=== PATIENT | male | born 1935 | race American Indian/Alaskan Native ===

== ENCOUNTER 2020-05-27 10:59 | Inpatient (IN) | payer MEDICARE, OTHER ==
[~2020-05-27] VITALS: Ht 165.1 cm; Wt 81.2 kg
[2020-05-27] MEDS ORDERED: LASIX20 MG PO (13:20)
[2020-05-27] MEDS ORDERED: COMBIVENT RESPIM4 GM INH (13:20)
[2020-05-27] MEDS ORDERED: ELIQUIS2.5 MG PO (13:21)
[2020-05-27] MEDS ORDERED: LIPITOR20 MG PO (13:21)
[2020-05-27] MEDS ORDERED: GLUCOTROL XL2.5 MG PO (13:21)
[2020-05-27] MEDS ORDERED: METOPROLOL TART25 MG PO (13:22)
--- NOTE | 2020-05-27 20:50 | NUR ---
PT HAD ARRIVED AT 1900 VIA STRETCHER, GOT SETTLED IN HIS ROOM WITH DAY SHIFT RN. ADMISSION COMPLETED AT THIS TIME. PT IS ALERT/ORIENTED, DENIES PAIN, IS SLIGHTLY [place]. LUNGS DIM, CRACKLES NOTED IN LEFT UPPER LOBES, OXYGEN TITRATED TO 2L VIA NC. HR V-PACED, TACHY, SCHEDULED METOPROLOL GIVEN. BOWEL TONES ACTIVE, DENIES NAUSEA. SKIN APPEARS GROSSLY INTACT, NO EDEMA NOTED. IV SITE PATENT AND INTACT, REMDESIVIR INFUSION STARTED. URINAL EMPTIED. WATER AND ENSURE PROVIDED. CALL LIGHT AND BELONGINGS WITHIN REACH.
--- NOTE | 2020-05-27 21:10 | NUR ---
REMDESIVIR INFUSION COMPLETED, IV SALINE LOCKED.
--- NOTE | 2020-05-27 23:23 | NUR ---
PT SLEEPING ON LEFT SIDE AT THIS TIME. 2L O2 VIA NC REMAINS IN PLACE. HR:84, RR:22, SPO2:93%. WILL ALLOW FOR REST AND CONTINUE TO MONITOR.
--- NOTE | 2020-05-28 00:34 | NUR ---
PT ASLEEP ON RIGHT SIDE, NO APPARENT DISTRESS. RESPIRATIONS EVEN AND UNLABORED, REMAINS ON 2L NC. LUNGS SOUND CLEAR EXCEPT FOR SOME FINE CRACKLES IN RIGHT LUNG BASE. HR PACED, RATE IN 80'S. WILL ALLOW FOR REST AT THIS TIME AND CONTINUE TO MONITOR.
--- NOTE | 2020-05-28 02:40 | NUR ---
PT CONTINUES TO SLEEP, NO APPARENT DISTRESS. HR:87, R:26, SPO2:95% ON 2L.
--- NOTE | 2020-05-28 04:45 | NUR ---
ASSESSMENT COMPLETED. PT WOKE EASILY, REMAINS ORIENTED, DENIES PAIN. NO CRACKLES AUSCULTATED, LUNGS SOUND CLEAR/DIM, REMAINS ON 2L. HR REMAINS PACED, RATE IN 70'S. BOWEL TONES ACTIVE, DENIES NAUSEA. URINAL EMPTIED. BLOOD DRAWN FOR MORNING LABS. PT DENIES REQUESTS AT THIS TIME, CALL LIGHT WITHIN REACH.
--- NOTE | 2020-05-28 07:07 | NUR ---
PT REQUESTS TO GET UP TO CHAIR. STANDING WEIGHT OBTAINED AND TRANSFERRED TO CHAIR WITH SBA. CALL LIGHT AND BELONGINGS WITHIN REACH.
--- NOTE | 2020-05-28 07:41 | NUR ---
0714: VERBAL REPORT RECEIVED FROM VIDAL SHABAZZ. LAST BP WAS 101/68, SAT IS NOW 96% AND HE IS PACED AT 69 AT THIS TIME.
--- NOTE | 2020-05-28 08:47 | NUR ---
PT RESTING IN HIS CHAIR AND HE DENIES ANY PAIN OR SOB AT THIS TIME. SPB RUNNING A BIT ON THE LOW SIDE, WILL BE NOTIFIED. PT STATES HE DOES NOT WEAR HIS DENTURES AND HE ORDERS SOFT FOODS DUE TO THIS. PT IS ALSO VERY [place]. UNABLE TO LISTEN TO HEART AND LUNG SOUNDS DUE TO PAPR. KATHY DENIES ANY CP AND STATES HIS BREATHING FEELS BETTER SINCE HIS ADMIT, SAT IS IN THE 90'S ON 2L AT THIS TIME. WILL CONTINUE TO MONITOR, SEE ASSESSMENT.
--- NOTE | 2020-05-28 09:11 | NUR ---
DR BYRD NOTIFIED OF PT'S BLOOD PRESSURES AND THAT THE LOPRESSOR WAS HELD.
--- NOTE | 2020-05-28 10:29 | NUR ---
1000: Pt assisted to the BR where he showered and was able to wash himself. Pt denies any sob while showering with his o2 on, his rr did increase to about 26 with walking and he was slightly unsteady on his feet. Pt was also noted to be incont of urine before his shower. After showering a fresh attends was placed. Fresh bedding was placed and the pt was assisted to his bed as he states he would like to take a nap. Pt states he feels "much better" following his shower. Call fournier within reach.
--- NOTE | 2020-05-28 11:28 | NUR ---
Pt appears to be sleeping at this time. Sat is 97% on 2l.
[2020-05-28] MEDS ORDERED: CLOPIDOGREL75 MG PO (11:45)
--- NOTE | 2020-05-28 12:05 | NUR ---
Dr Maurer called and updated to the pt's vital signs and she confirmed that she wishes for the pt to receive his ordered lasix dose.
--- NOTE | 2020-05-28 12:38 | NUR ---
PT DENIES ANY PAIN OR SOB AT THIS TIME, SAT 97% ON 2L, RR IS 23. WILL CONTINUE TO MONITOR, SEE ASSESSMENT.
--- NOTE | 2020-05-28 14:05 | NUR ---
Pt appears to be sleeping at this time. Sat remains in the high 90's on 2l via nc.
--- NOTE | 2020-05-28 14:16 | NUR ---
Pt had 3 beats of VT. Pt status and vs unchanged.
--- NOTE | 2020-05-28 14:39 | NUR ---
Pt sleeping, RR 22 and sat 98%.
--- NOTE | 2020-05-28 15:37 | NUR ---
MD AWARE OF BP, SEE EMAR.
--- NOTE | 2020-05-28 15:38 | NUR ---
PT RESTING IN HIS BED AND HE CONTINUES TO DENY ANY CP OR SOB. RR IS NOW 22 AT REST WITH A SAT OF 99%, O2 DECREASED TO 1L AND SAT DECREASED TO 95%. BP REMAINS LOW AND A FLUID BOLUS WAS ORDERED AND STARTED, SEE EMAR. NO OTHER NOTED CHANGES, SEE ASSESSMENT.
--- NOTE | 2020-05-28 16:43 | NUR ---
A BAG WITH THE PT'S HOME MEDICATIONS WAS DROPPED OFF AT THE NURSING STATION BY SECURITY, WHICH I WAS UNAWARE WERE COMING. THE PT IS COVID POSITIVE SO THEY WERE PLACED IN ANOTHER BAG, THE COUNTER WAS CLEANED WHERE THEY WERE PLACED AND RX TOOK THE BAG OF MEDICATICATIONS TO THE PHARMACY. THE CRT WAS NOTIFIED OF THESE EVENTS.
--- NOTE | 2020-05-28 17:22 | NUR ---
SAT 96% ON 1L, O2 TURNED OFF. PT CONTINUES TO DENY ANY PROBLEMS, BUT HIS RR IS 23 AT REST. WILL CONTINUE TO MONITOR.
--- NOTE | 2020-05-28 17:38 | NUR ---
Pt eating dinner at this time. Sat on room air is 92% and he continues to deny any sob.
--- NOTE | 2020-05-28 18:17 | NUR ---
PT ASSISTED TO THE C WHICH HE WAS ABLE TO HAVE A LARGE SOFT BROWN BM. UPON THE TIME HE RETURNED TO BED HE WAS SOB BUT MAINTAINED HIS O2 SAT IN THE 90'S AND RR INCREASED 28 FOR ABOUT 90 SECONDS. FOLLOWING THIS HE STATES HIS "BREATHING STRAIGHTENED OUT" AND HE DECLINED A BREATHING TREATMENT. SAT IS 96 ON RA AND HIS RR IS 23 AT THIS TIME. WILL CONTINUE TO MONITOR.
--- NOTE | 2020-05-28 19:28 | NUR ---
DR BYRD CALLED AND NOTIFIED OF THE PT'S BP AND AN ORDER WAS RECEIVED TO CONTINUE THE ORDERED IV BOLUS. REPORT GIVEN TO THE ON COMING SHIFT.
--- NOTE | 2020-05-28 20:30 | NUR ---
PT IN BED AWAKE AND ALERT. PT IS CURRENTLY ON ROOM AIR AND HAS LABORED BREATHING, EXP WHEEZES HEARD ON R SIDE OF LUNGS. PT REPORTS NO DIFFICULTY BREATHING OR SHORTNESS OF BREATH WHEN ASKED. MEDICATIONS ADMINISTERED ORDERED (SEE MAR). INSULIN NOT GIVEN PER SLIDING SCALE. PT STATED HE HAD SOME LABORED BREATHING EARLIER BUT FEELS FINE AT THIS TIME. PT REPORTS NO FURTHER NEEDS AT THIS TIME, WILL CONTINUE PLAN OF CARE. CALL LIGHT IN REACH BED IN LOWEST POSITION.
--- NOTE | 2020-05-28 20:44 | EKG ---
[facility] [address] [facility] [place], [place] [address] Signed Suspect unspecified pacemaker failure Ventricular-paced rhythm with frequent premature ventricular complexes Abnormal ECG No previous ECGs available Confirmed by ERIC BYRD MD ([id number]) on 05/28/2020 8:44:28 PM Electronically Signed By: ERIC BYRD MD 05/28/20 2044 PATIENT NAME: GABRIELLAKATHY Electrocardiogram DATE OF : 37 PHYSICIAN: ERIC BYRD MD REPORT #: [id number] REPORT IS CONFIDENTIAL AND NOT TO BE RELEASED WITHOUT AUTHORIZATION
--- NOTE | 2020-05-28 22:10 | NUR ---
THIS RN IN TO ASSESS PT DUE TO IV PUMP GOING OFF. PT BREATHING LABORED BUT PT REPORTS NO SHORTNESS OF BREATH OR DIFFICULTY. UPON AUSCULTATION EXP WHEEZES HEARD ON RIGHT SIDE. PT ASKED IF HE WOULD LIKE TO TRY BREATHING TREATMENT AND AGREED TO. RT NOTIFIED THAT PT. WOULD LIKE A BREATHING TX. PT ON ROOM AIR AT THIS TIME SPO2 AT 92%. PT HELPED INTO SEMI FOWLERS. PT REPORTS NO FURTHER NEEDS WHEN ASKED. CALL LIGHT WITHIN REACH, BED IN LOWEST POSITION. WILL CONTINUE PLAN OF CARE.
--- NOTE | 2020-05-28 23:04 | NUR ---
RT IN GIVE NEB FOR WHEEZES. AFTERWARD SATS NOTED TO BE 86-88. 02 2L NC APPLIED.
--- NOTE | 2020-05-29 | NUR ---
THIS RN IN TO ASSESS PT. PT WAS ON BEDSIDE COMMODE AND HAD A BM. PT VOIDED ON FLOOR AND WAS THEREFORE UNMEAUSURED. PT'S BRIEFS WERE CHANGED HE HAD AN EPISODE OF INCONTINENCE. PT WAS ABLE TO STAND UP AND SHUFFLE WALK BACK TO BED. PT ALSO ABLE TO HELP PULL UP NEW PAIR OF BRIEFS. PT DENIES HAVING SOB OR DIFFICULTY BREATHING BUT STATES HIS "BREATHING FELT DEEPER AND HEAVIER" AFTER HIS BREATHING TREATMENT. PT REPORTS NO FURTHER NEEDS AT THIS TIME AND IS ON 2L O2 NC. IV FLUIDS INFUSING ORDERED. CALL LIGHT WITHIN REACH, BED IN LOWEST POSITION, WILL CONTINUE PLAN OF CARE.
--- NOTE | 2020-05-29 00:03 | NUR ---
DR BYRD GIVEN UPDATE THAT METOPROL WAS BEING HELD BP LOW.
--- NOTE | 2020-05-29 01:37 | NUR ---
THIS RN IN TO RESTART IV FLUIDS PUMP ALARM WAS GOING OFF. PT WAS SLEEPING AND WOKE TO ME ENTERING THE ROOM. IV FLUIDS STARTED AGAIN, PT REPORTS NO PAIN AND NO SHORTNESS OF BREATH. PT STATES HE HAS FELT A LITTLE SHORT OF BREATH THROUGHOUT THE NIGHT. PT CURRENTLY ON 2L NC, SPO2 AT 94%, RR AT 26. PT REPORTS NO FURTHER NEEDS AT THIS TIME AND WAS READJUSTED IN BED. PT NOW SEMIFOWLERS. PT STATES HE WILL GO BACK TO SLEEP. CALL LIGHT WITHIN REACH, BED IN LOWEST POSITION. WILL CONTINUE PLAN OF CARE.
--- NOTE | 2020-05-29 04:18 | NUR ---
THIS RN IN TO ASSESS PT. PT IV PUMP ALARMING AND IVF WERE RESTARTED AFTER FLUSHING LINE. PT REPORTS NO PAIN WHEN ASKED AND NO SHORTNESS OF BREATH. PT ON 2L O2 NC, SPO2 AT 93%. PT REPORTS NO FURTHER NEEDS AFTER ASSESSMENT. CALL LIGHT LEFT AT SIDE WITHIN REACH, BED IN LOWEST POSITION. PT. EDUCATED ON PLAN OF CARE AND REASON FOR BEING HERE. PT IS ALERT AND ORIENTED TO ALL BUT FORGETFUL OF CHF EXACERBATION THOUGH HE RECALLS THAT HE IS HERE FOR TESTING POSITIVE FOR "THE VIRUS". PT REPORTS NO FURTHER NEEDS, WILL CONTINUE PLAN OF CARE.
--- NOTE | 2020-05-29 06:52 | NUR ---
THIS RN IN TO ASSESS PT. IVF COMPLETE, PT SALINE LOCKED. UPON INSPECTION OF FLUSHING NS IV SITE BEGAN TO LEAK. IV DC'D DUE TO INFILTRATION. IV INTACT, PT TOLERATED REMOVAL WELL. LABS DRAWN AT THIS TIME WELL. PT REPORTS NO SOB OR PAIN AT THIS TIME. PT REPORTS NO FURTHER NEEDS AT THIS TIME. PT ON 2L O2 NC, SPO2 AT 95%, RR AT 23. WILL CONTINUE PLAN OF CARE, CALL LIGHT WITHIN REACH, BED IN LOWEST POSITION.
--- NOTE | 2020-05-29 08:40 | NUR ---
LAST BP 94/59 WHICH IS WITHIN THE RANGE OF WHERE THE PT HAS BEEN RUNNING. PT DENIES ANY NEW PROBLEMS TO INCLUDE NO SOB AT REST. I AM UNABLE TO LISTEN TO HIS LUNGS DUE TO THE PAPR, RR IS 20 NOW AT REST AND HIS SAT IS 93% ON 2L AT THIS TIME. NEW IV PLACED IN HIS LEFT WRIST AND IS INFUSING HIS ORDERED REMDESIVIR AT THIS TIME. SEE ASSESSMENT FOR A FULL UPDATE.
--- NOTE | 2020-05-29 09:48 | NUR ---
Dr Maurer notified that the lopressor was held and she is aware of the am lab results, no new orders at this time.
--- NOTE | 2020-05-29 10:42 | NUR ---
PT CONTINUES TO DENY ANY SOB WHILE AT REST OR ANY OTHER PROBLEMS AT THIS TIME. PT ATE 100% OF HIS BREAKFAST AND STATES THAT HE IS GOING TAKE A NAP AT THIS TIME.
--- NOTE | 2020-05-29 10:56 | NUR ---
1046: PT HAD 9 BEATS OF V-TACH AND RETURNED TO HIS PACED RHYTHM WITH FREQUENT PVC'S PRIOR. BP CHECKED AT 98/74 WITH A MAP OF 79 AND A SAT OF 94% ON 2L. PT DENIES ANY CP OR ANY OTHER CHANGE IS CONDITION. 1052: DR BYRD NOTIFIED AND SHE VIEW THE V-TACH. VO RECEIVED TO GIVEN THE HELD LOPRESSOR 25 MG PO NOW AND CONTINUE TO MONITOR RHYTHM AND BP.
--- NOTE | 2020-05-29 11:19 | NUR ---
PT APPEARS TO BE SLEEPING AT THIS TIME.
--- NOTE | 2020-05-29 12:20 | NUR ---
PT CONTINUES TO DENY ANY SOB WHILE AT REST AND WITH NO CHANGES IN HIS STATUS NOTED. PT REPOSITIONED AND IS USING HIS IS EDUCATED. SEE ASSESSMENT.
--- NOTE | 2020-05-29 13:28 | NUR ---
1322; PT HAD 15 BEATS OF V-TACH AND HE CONTINUES TO DENY ANY SYMPTOMS. BP 107/95 WITH A MAP OF 102, SAT 95% ON 4L AND HIS HR RETURNED TO HIS PACED RHYTHM PRIOR. DR BYRD WAS CALLED AND NOTIFIED AND THE STRIP WAS PLACED IN THE CHART.
--- NOTE | 2020-05-29 15:35 | NUR ---
PT CONTINUES RESTING IN HIS BED WITHOUT ANY COMPLAINTS. SEE ASSESSMENT.
--- NOTE | 2020-05-29 16:15 | NUR ---
Pt called and states that his iv K+ that is infusing is causing some pain. The site appears good without any swelling or redness, the rate was decreased and a warm blanket was placed to the arm. The pt was instructed to call if the pain increases or does not ease up in a few minutes.
--- NOTE | 2020-05-29 16:29 | NUR ---
Sulaiman states that the iv site feels much better since the iv rate was decreased.
--- NOTE | 2020-05-29 17:19 | NUR ---
Pt sitting up at the bedside eating his dinner. He states that he breathing is feeling better and he denies any sob. His left wrist iv site continues to appear healthy and he states the stinging is much better since the infusion rate has been decreased. Pt continues to deny any CP or any other new problems.
--- NOTE | 2020-05-29 17:33 | NUR ---
Pt layed back down following his eating his dinner at the bedside and now he has a some exp wheezes. RT called for a breathing treatment at this time.
--- NOTE | 2020-05-29 20:50 | NUR ---
PT CALLED AND STATED HIS BREATHING FEELS HEAVY. BREATH TONES CRACKLES BASES BILAT. RT CALLED AND NEB TX GIVEN. PT VIDHYA TX WELL AND FEELS LIKE IT HELPED. TAKING PO FLUIDS WELL, REQUESTING ENSURE. VOIDING WELL.
--- NOTE | 2020-05-29 23:08 | NUR ---
UP TO BSC TO HAVE SEMI SOFT BM AND TO VOID. SL SOB WITH EXERTION BUT OTHERWISE VIDHYA WELL.
--- NOTE | 2020-05-29 23:19 | NUR ---
PLACED O2 SAT MONITOR 90% ON 2 L. PRIMARY RN UPDATED.
--- NOTE | 2020-05-30 00:04 | NUR ---
SLEEPING AT THIS TIME.
--- NOTE | 2020-05-30 00:45 | NUR ---
PT WANTING TO SIT UP IN CHAIR. STATES HE JUST CAN'T LAY DOWN ANY MORE TO SLEEP. UP TO CHAIR. CRACKLES HAVE INCREASED. SATS REMAIN LOW 90'S.
--- NOTE | 2020-05-30 02:45 | NUR ---
BACK TO BED. NO CHANGE IN BREATH TONES.
--- NOTE | 2020-05-30 04:12 | NUR ---
RESPONDED TO PT CALL LIGHT. PT STATED THAT HE WAS FEELING UNCOMFORTABLE AND COULD NOT GO TO SLEEP. THIS RN WENT IN TO ASSESS PT AND WAS GIVEN PRN TYLENOL FOR HIS GENERAL DISCOMFORT. PT DENIES SHORTNESS OF BREATH AT THIS TIME BUT STATES HE HAS HAD OCCASIONAL SOB THROUGHT THE NIGHT. PT ON 2L O2, SPO2 AT 94%. PT REPORTS NO FURTHER NEEDS AT THIS TIME, WILL CONTINUE PLAN OF CARE. CALL LIGHT IN REACH, BED IN LOWEST POSITION.
--- NOTE | 2020-05-30 06:20 | NUR ---
THIS RN IN TO ASSESS PT AND DRAW LABS. WAS UNABLE TO DRAW LABS AT THIS TIME. PT REPORTS NO SHORTNESS OF BREATH AT THIS TIME AND NO PAIN. PT STATES THE TYLENOL GIVEN TO HIM HELPED HIS SLEEP FOR THE REST OF THE MORNING. PT PROVIDED WITH A SODA HE REQUESTED. WILL CONTINUE PLAN OF CARE. CALL LIGHT WITHIN REACH, BED IN LOWEST POSITION. PT ON 2L O2 NC, SPO2 AT 92%.
--- NOTE | 2020-05-30 08:20 | NUR ---
ECHO BEING DONE AT BEDSIDE.
--- NOTE | 2020-05-30 09:00 | NUR ---
ASSESSMENT DONE. PATIENT DENIES SHORTNESS OF BREATH. USING URINAL TO VOID. ECHO COMPLETE. REMDISEVER HUNG. PO MEDICATIONS GIVEN. BLOOD DRAWN 1.5 ML DRAWN FROM RIGHT FOOT. O2 AT [address] DENEIS PAIN[address] TALKED WITH PATIENT ABOUT POC FOR DAY FOR DAY INDICATES UNDESTANDING..
--- NOTE | 2020-05-30 10:00 | NUR ---
CONTINUES TO SIT EATING BREAKFAST.
--- NOTE | 2020-05-30 10:20 | NUR ---
RESTING NO CHANGES NOTED.
--- NOTE | 2020-05-30 11:30 | NUR ---
AM CARE GIVEN. TOLERATED WELL, THEN TRANSFERRED TO CHAIR. TOLERATED TRANSFER WELL
--- NOTE | 2020-05-30 12:00 | NUR ---
ASSESSMENT DONE. NO CHANGES. ACCUCHECK 287. 7 UNITS INSULIN SQ GIVEN.
--- NOTE | 2020-05-30 13:00 | NUR ---
SAT IN CHAIR TO TAKE LUNCH, TOLERATED WELL.
--- NOTE | 2020-05-30 13:30 | NUR ---
BACK TO BED WITH ASSIST. IS SOMEWHAT UNSTEADY ON FEET. INCREASED SHORTNESS OF BREATH WITH EXERTION.
--- NOTE | 2020-05-30 14:14 | NUR ---
DUE TO PRECAUTIONS, I AM UNABLE TO VISIT WITH PT. WILL FOLLOW NEEDED
--- NOTE | 2020-05-30 15:00 | NUR ---
RESTING WHEN CHECKED ON. NO DISTRESS NOTED.
--- NOTE | 2020-05-30 17:20 | NUR ---
ACCUCHECK 211, 3 UNITS INSULIN GIVEN.
--- NOTE | 2020-05-30 20:15 | NUR ---
SHIFT REPORT RECEIVED FROM HARIKA BURRIS. ASSESSMENT COMPLETED. PT ALERT/ORIENTED, DENIES PAIN. LUNGS CLEAR, DIM IN BASES, 2L O2 VIA NC IN PLACE. DENIES SOB AT REST. HR PACED. BOWEL TONES ACTIVE, DENIES NAUSEA. SKIN GROSSLY INTACT. IV INTACT AND PATENT. EVENING MEDICATIONS TAKEN WITHOUT ISSUE. URINAL EMPTIED. ICE WATER PROVIDED. DISCUSSED PLAN OF CARE, QUESTIONS ANSWERED. CALL LIGHT AND BELONGINGS WITHIN REACH.
--- NOTE | 2020-05-30 20:57 | NUR ---
PT CALLED TO REQUEST BREATHING TREATMENT. GIVEN AT THIS TIME.
--- NOTE | 2020-05-30 22:06 | NUR ---
PT APPEARS TO BE SLEEPING AT THIS TIME, NO APPARENT DISTRESS. RESPIRATIONS EVEN AND UNLABORED, 2L O2 VIA NC IN PLACE. HR:60, RR:20, SPO2:95%.
--- NOTE | 2020-05-30 22:21 | NUR ---
PT CALLED TO REQUEST TO MOVE TO CHAIR. TRANSFERRED WITH SBA TO CHAIR. NO FURTHER REQUESTS AT THIS TIME, CALL LIGHT AND BELONGINGS WITHIN REACH.
--- NOTE | 2020-05-31 00:41 | NUR ---
ASSESSMENT COMPLETED. PT STATES HE HAS BEEN ABLE TO SLEEP, REMAINS SITTING UP IN CHAIR AND HAS TILTED HIMSELF ONTO RIGHT SIDE. DENIES PAIN. LUNGS CLEAR/DIM, REMAINS ON 2L, NEB GIVEN PER REQUEST. HR PACED. BOWEL TONES ACTIVE, DENIES NAUSEA. NO EDEMA PRESENT. IV REMAINS INTACT, SALINE LOCKED. URINAL EMPTIED AND ICE WATER PROVIDED. NO FURTHER REQUESTS AT THIS TIME, CALL LIGHT WITHIN REACH.
--- NOTE | 2020-05-31 02:30 | NUR ---
PT REMAINS UP IN CHAIR, APPEARS TO BE ASLEEP. NO APPARENT DISTRESS, 2L O2 REMAINS IN PLACE. HR:73, RR:24, SPO2:95%.
--- NOTE | 2020-05-31 02:49 | NUR ---
PT CALLED FOR ASSISTANCE GETTING BACK TO BED. TRANSFERRED WITH SBA. URINAL EMPTIED. NO FURTHER REQUESTS AT THIS TIME, CALL LIGHT WITHIN REACH.
--- NOTE | 2020-05-31 05:10 | NUR ---
ASSESSMENT COMPLETED, UNCHANGED FROM PREVIOUS. CONTINUES TO DENY SOB AT REST. BLOOD DRAWN FOR MORNING LABS, PT TOLERATED WELL. URINAL EMPTIED. NO REQUESTS AT THIS TIME, CALL LIGHT WITHIN REACH.
--- NOTE | 2020-05-31 06:18 | NUR ---
URINAL EMPTIED. PT APPEARS TO BE ASLEEP, NO APPARENT DISTRESS. RR:19, HR:61, SPO2:94% ON 2L. CALL LIGHT WITHIN REACH.
--- NOTE | 2020-05-31 06:47 | NUR ---
PT CALLED TO REQUEST FRESH ICE WATER AND AN ENSURE, PROVIDED AND ACCOUNTED FOR AT THIS TIME.
--- NOTE | 2020-05-31 07:30 | NUR ---
REPORT RECIEVED. PATIENT IS SLEEPING. NO DISTRESS NOTED.
--- NOTE | 2020-05-31 09:00 | NUR ---
WOKE FOR ASSESSMENT AND MEDICATION. UP TO CHAIR FOR BREAKFAST INCREASED SHORTNESS OF BREATH WITH EXERTION.
--- NOTE | 2020-05-31 09:30 | NUR ---
TO COMMODE TO EXPELL MED SOFT FORMED BROWN STOOL. AM CARES GIVEN WHILE ON COMMODE. THEN BACK TO BED. REMEISEVER GIVEN.
--- NOTE | 2020-05-31 10:47 | NUR ---
RESTING IN BED. DENEIS PROBLEMS. O2 IN PLACE.
--- NOTE | 2020-05-31 12:30 | NUR ---
SLEEPING, NO DISTRESS NOTED.
--- NOTE | 2020-05-31 13:20 | NUR ---
REFUSED FOOD, ENSURE GIVEN. ACCUCHECK 301. 7 UNITS INSULIN GIVEN. TRANSFERRED TO CHAIR.
--- NOTE | 2020-05-31 14:48 | NUR ---
CONTINUES TO SIT IN CHAIR. HAD RUN OF VTACH 29 BEATS, PATIENT FELT FLUSHED.
--- NOTE | 2020-05-31 14:48 | NUR ---
STILL UNABLE TO VISIT PT DUE TO PRECAUTIONS. WILL CONTINUE TO FOLLOW
--- NOTE | 2020-05-31 15:00 | NUR ---
IS HOUSE CONVENIENCE IN ROOM 126 OF NOON TODAY. REMAINS IN CHAIR.
--- NOTE | 2020-05-31 15:10 | NUR ---
CANNOT SEE PATIENT IN ROOM DUE TO COVID GUIDELINE. STAFF THINKS PATIENT WOULD HAVE A HARD TIME TALKING ON THE PHONE. CALLED DAUGHTER HITESH [phone] AND VOICEMAIL LEFT FOR CALLBACK.
--- NOTE | 2020-05-31 15:45 | NUR ---
TELE # 6 APPLIED APPLIED. ASSESSMENT DONE. BACK TO BED AFTER SITTING IN CHAIR THE LAST 3 HOURS. HAS BEEN MORE TIRED TODAY WITH LESS ENERGY.
--- NOTE | 2020-05-31 15:55 | NUR ---
ASSESSMENT DONE. MORE SHORT OF BREATH WITH EXERTION THIS AFTERNOON. ON TELE #6.
--- NOTE | 2020-05-31 15:59 | NUR ---
RECEIVED CALL BACK FROM DAUGHTER HITESH. PATIENT LIVES IN [place] IN OWN HOME WITH HIS HOUSE FATHER WHO IS HIS NEPHEW. 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 DAUGHTER SPOKE WITH THEM, IF HE NEEDS RX HERE HE CAN USE [facility] AND THEY WILL PAY. PATIENT USES A WALKING STICK FOR AMBULATION. HAD JUST GOT A NEW NEBULIZER BUT THEY FORGET TO BRING IT. SHE STATES HIS NEPHEW RECENTLY TESTED COVID POSITIVE, PATIENT WAS NEGATIVE SO SHE BROUGHT PATIENT HERE WHILE NEPHEW QUARANTINED. HOWEVER, PATIENT THEN BECAME ILL AND WAS COVID POSITIVE. NOW HER FAMILY HAS TESTED POSITIVE. PATIENT HAS A COUPLE STEPS IN WITH RAIL AT HOME, NO STAIRS NEEDED HERE WITH HER. PATIENT FEEDS SELF, DRESSES SELF AND TOILETS SELF. HE DOES NOT TAKE SHOWERS ON OWN SINCE A FALL BUT WILL WITH ASSIST. SHE STATES HE IS OK FOR COST OF MEDS/FOOD AND UTILITIES. PLAN IS TO STAY WITH HER AT DISCHARGE UNTIL QUARANTINES OF ALL IS THROUGH. SHE STATES HE WILL HAVE HELP ATC HERE. QUESTIONS ANSWERED. CM WILL CONTINUE TO FOLLOW.
--- NOTE | 2020-05-31 19:20 | NUR ---
REPORT TO NEXT SHIFT.
--- NOTE | 2020-05-31 20:04 | NUR ---
SHIFT REPORT RECEIVED FROM HARIKA BURRIS. PT CALLED TO REQUEST BREATHING TREATMENT. ASSESSMENT COMPLETED AT THIS TIME. PT REPORTS SOB, RESPIRATIONS ARE TACHYPNIC. LUNGS SOUND COARSE IN UPPER RIGHT WITH EXPIRATORY WHEEZES NOTED IN RIGHT LOWER. LEFT SIDE SOUNDS CLEAR/DIM, 2L O2 VIA NC IN PLACE, NEB GIVEN. HR PACED. BOWEL TONES ACTIVE, DENIES NAUSEA. SKIN GROSSLY INTACT, NO EDEMA NOTED. IV INTACT, PATENT, SALINE LOCKED. URINAL EMPTIED. PT DENIES ANY PAIN OR FURTHER REQUESTS AT THIS TIME. CALL LIGHT WITHIN REACH.
--- NOTE | 2020-05-31 21:53 | NUR ---
PT CALLED TO REPORT THAT HE FELT LIKE HE COULDN'T COUGH UP SPUTUM. DR. BYRD CALLED AND ORDER FOR ONE TIME MUCINEX DOSE RECEIVED. PT ALSO PROVIDED WITH AND INSTURCTED TO USE ACAPELLA, WHICH PT WAS ABLE TO DEMONSTRATED. PT UP TO CHAIR AT THIS TIME WITH SBA. REMAINS AT 2L OXYGEN, SPO2:92%. CALL LIGHT WITHIN REACH, PT DENIES FURTHER REQUESTS.
--- NOTE | 2020-05-31 23:03 | NUR ---
PT CALLED, HE WAS READY TO GO BACK TO BED AND ALSO NEEDED TO HAVE BM. UP TO BSC, HAD SMALL BM, THEN RETURNED TO BED. URINAL EMPTIED AND WATER PROVIDED. NO FURTHER REQUESTS, CALL LIGHT WITHIN REACH.
--- NOTE | 2020-06-01 00:15 | NUR ---
ASSESSMENT COMPLETED. PT DENIES PAIN. LUNGS CLEAR/DIM, REMAINS ON 2L O2 VIA NC, DENIES SOB AT REST. REMAINDER OF ASSESSMENT UNCHANGED. PT PROVIDED WITH ENSURE PER REQUEST. VITAL SIGNS STABLE, AFEBRILE. NO FURTHER REQUESTS AT THIS TIME, CALL LIGHT WITHIN REACH.
--- NOTE | 2020-06-01 02:16 | NUR ---
PT POSITIONED ON RIGHT SIDE, APPEARS TO BE ASLEEP AT THIS TIME, NO APPARENT DISTRESS. RESPIRATIONS EVEN AND UNLABORED. HR:86, SPO2:93% ON 2L.
--- NOTE | 2020-06-01 04:45 | NUR ---
ASSESSMENT COMPLETED. PT REPORTS FEELING SOMEWHAT RESTLESS AND UNCOMFORTABLE, PRN TYLENOL ADMINISTERED FOR COMFORT. LUNGS REMAIN CLEAR/DIM, 2L O2 VIA NC IN PLACE. HR REMAINS PACED, TELE#6. NO OTHER CHANGES FROM PREVIOUS ASSESSMENT. DENIES FURTHER REQUESTS, CALL LIGHT WITHIN REACH.
--- NOTE | 2020-06-01 09:10 | NUR ---
REPORT RECEIVED FROM NIGHT RN AND PATIENT CARE RESUMED. TEMP. IS 97.9. PT. AMBULATED INDEPENDENTLY TO THE CHAIR AND TOLERATED WELL. ON 2L OF 02 NC AND O2 SAT. 93%. IV SITE WNL. PT. VOIDED 350ML CLEAR YELLOW URINE. BLOOD GLUCOSE WAS 204 AND 3UNITS OF HUMALOG GIVEN. PT. LEFT RESTING IN THE CHAIR WITH CALL LIGHT IN REACH.
--- NOTE | 2020-06-01 10:03 | NUR ---
PATIENT BEDDING CHANGED. PT. AMBULATED INDEPENDENTLY FROM THE CHAIR TO THE BED AND TOLERATED WELL. PT. STATED HIS DAUGHTER HAS HIS PACER CARD IN HIS WALLET. HIS DAUGHTER WAS CALLED AND STATED THE PACER MODEL IS [employer] [id number].
--- NOTE | 2020-06-01 10:21 | NUR ---
ESHA RN IN ER CONTACTED [employer] REP, LEE. THE PACER INTEROGATORS WE HAVE ARE NOT COMPATIBLE WITH THE [employer]RONIC PACER. REP. STATED THAT THE BIOTRONIC REP. IN [place] WOULD HAVE TO INTEROGATE IT AND RESET. THE NUMBER GIVEN IS [phone].
--- NOTE | 2020-06-01 11:40 | NUR ---
PATIENT IV DC'D DUE TO LEAKING. PT. ORDERED LUNCH AND ASSISTED WITH REPOSITIONING. PT LEFT RESTING IN BED WITH CALL LIGHT IN REACH.
--- NOTE | 2020-06-01 12:05 | NUR ---
IV STARTED. 22G IN LEFT UPPER ARM. FLUSHED WELL AND TONNY BACK BLOOD. HEMATOMA PRESENT AND PRESSURE APPLIED WITH GUAZE AND COBAND. PT. TOLERATED WELL. BLOOD RETURN AND FLUSHED WELL.
--- NOTE | 2020-06-01 13:00 | NUR ---
PATIENT AMBULATED TO THE BEDSIDE COMMODE AND VOIDED 400 AND HAD A LARGE FORMED BM. PT. 02 SAT. DECREASED TO 87% WITH EXERTION. PT. STATED HE COULD NOT BREATH THROUGH HIS NOSE WELL, SO OXYMASK USED AND TITRATED TO 3L 02. 02 SAT RETURNED TO 92%. PT. IV SITE WNL AND FLUSHED WELL. FINE CRACKLES PRESENT IN LOWER LOBES OF LUNGS BILAT. AND WHEEZES IN THE RUL. PT. ASSISTED WITH REPOSITIONING. PT. REQUESTED NEB. TX AND O2 CALLED.
--- NOTE | 2020-06-01 14:09 | NUR ---
UNABLE TO VISIT PT DUE TO COVID-19 POSITIVE. WILL FOLLOW NEEDED
--- NOTE | 2020-06-01 15:26 | NUR ---
No change in discharge plan.
--- NOTE | 2020-06-01 17:56 | NUR ---
BLOOD GLUCOSE WAS 273 AND GIVEN 5 UNITS OF HUMALOG. PT. AMBULATED WITH ASSISTANCE TO CHAIR. PT. STATED THAT HE HAS NOT SLEPT IN 2 DAYS BECAUSE OF HIS COUGH. DR. WEST NOTIFIED AND ORDERED ROBITUSSIN. PT. USED ACAPELLA. PT. LEFT RESTING IN BED WITH CALL LIGHT IN REACH.
--- NOTE | 2020-06-01 18:12 | NUR ---
PATIENT GIVEN ROBITUSSEN FOR COUGH. VOIDED 275ML IN URINAL. PT. LEFT RESTING IN CHAIR WITH CALL LIGHT IN REACH.
--- NOTE | 2020-06-01 18:55 | NUR ---
report received . pt to go to room 117
--- NOTE | 2020-06-01 19:46 | NUR ---
pt transferred to room 117 at 1940
--- NOTE | 2020-06-01 20:00 | NUR ---
PT ON 2LNC O2. LUNGS DIM AT BASES, MOIST NON PROD COUGH PRESENT. ON AIRBORNE PRECAUTIONS PER COVID+ DX. SL L ARM PATENT. CHEVAK. CALL LIGHT AND FLUIDS AT BEDSIDE. COOPERATIVE. USES CALL LIGHT APPROPRIATELY
--- NOTE | 2020-06-01 22:00 | NUR ---
PT C/O INSOMNIA, DR WEST NOTIFIED VIA PHONE, NEW ORDERS FOR MELATONING 1MG PRN OBTAINED.
--- NOTE | 2020-06-01 22:10 | NUR ---
MELATONIN 1MG PO GIVEN PER INSOMIA ON REQUESTS. USED URINAL, VOIDING QS YELLOW URINE, REPOSIONS SELF IN BED, O2 2lnc, TELE CPOX INPLACE. 92-93%.
--- NOTE | 2020-06-01 22:45 | NUR ---
SMALL AMOUNT OF YELLOW URINE EMPTIED, USES URINAL, DENIES SOB WITH EXERTION AT THIS TIME, BACKA TO BED W/O ASSIST
--- NOTE | 2020-06-01 23:11 | NUR ---
URINAL EMPTIED, ROOM MADE WARMER PER HIS REQUESTS, REPOSITONS SELF, MOIST NON PROD COUGH PRESENT, O2 2L NC. VOIDING QS. 'BETTE WIDE AWAKE, I DO NOT KNOW WHATS HAPPENING, I CANT SLEEP, MED IS NOT EFFECTIVE. " CONT ON ISOLATION ROOM
--- NOTE | 2020-06-01 23:55 | NUR ---
c/o generalized axches, medicated with 2 tylenol.
--- NOTE | 2020-06-02 01:22 | NUR ---
RESTING, EYES CLOSED, NO DISTRESS, TELE CPOX 95%, CALL LIGHT AT BEDSIDE
--- NOTE | 2020-06-02 01:56 | NUR ---
CONTINUES ON AIRBORNE ISOLATION PRECAUTIONS, O2 2LNC, TELE CPOX 92%, NO DISTRESS, EYES CLOSED. CALL LIGHT AND FLUIDS AT BEDSIDE
--- NOTE | 2020-06-02 03:19 | NUR ---
PT CALLED TO LET THIS NURSE KNOW THAT HE HAD SLEP FOR OVER 1.5HRS. SITTING EDGE OF BED. ON 2LNC, TELE CPOX AT 91%, SLIGHT SOB NOTED WHEN UP TO URINATE AND BACK TO BED. USES CALL LIGHT, COOP WTIH SECOND ASSESSMENT. CONTINUES ON AIRBORNE PRECAUTIONS ISOLATION
--- NOTE | 2020-06-02 06:30 | NUR ---
medicated with Tylenol per c/o generalized pain. Coop with blood draw. Up edge of bed, no sob noted at this time, voiding small amounts urine. uses call light, O2 2LNC,
--- NOTE | 2020-06-02 06:40 | NUR ---
Pt in airborne isolation, +covid. on 2LNC O2 at this time, tele cpox in place, sats 89-95%, noted to be sob on exertion when getting up to edge of bed and using the urinal X2, other times was fine. no n/v, Was medicated with Tylenol per generalized pain, effective. CBG 271, received ss insulin. uses urinal, voiding small amounts QS yellow urine. On fluid restrictions of 1600cc/24 tolerating well, no n/v. sl patent, SBA when walking, slight unsteady gait. cooperatve, uses call light
--- NOTE | 2020-06-02 07:44 | NUR ---
0715: Report received from Stephanie SHABAZZ. Tele reads paced at 74 with a sat of 94%.
--- NOTE | 2020-06-02 08:30 | NUR ---
Per 8:[address] Betts, pt will dc today. 02 qualifier ordered as pt remains on 022l. Called and spoke with daughter for dc plan. Pt will go home with her for a few days and then return to [facility] for Cardiology appt on the . Obtained her address to have 02 delivered. I will use [facility] [place] as they are nationwide.
--- NOTE | 2020-06-02 09:10 | NUR ---
[address] Betts. Pt is in requirement of 10L with activity. He will not dc today. Daughter called and updated.
--- NOTE | 2020-06-02 09:23 | NUR ---
PT DENIES ANY PAIN AT THIS TIME, HE IS HAVING SOME SOB WHILE WORKING WITH PHYSICAL THERAPY AND RT AT THIS TIME. HE REMAINS ON CPOX AT THIS TIME, SEE RT'S NOTES. SEE ASSESSMENT.
--- NOTE | 2020-06-02 10:01 | NUR ---
Pt called and complains of sob following his work with physical therapy. Sat is 92% on 2l and his RR is 26. Unable to listen to lungs due to PPE. RT was called and a breathing treatment was requested.
--- NOTE | 2020-06-02 10:11 | NUR ---
Pt receiving a breathing treatment which he states helped and that his breathing now feels normal. Call fournier remains within reach.
--- NOTE | 2020-06-02 12:15 | NUR ---
Sat 90% on 2l at this time.
--- NOTE | 2020-06-02 12:51 | NUR ---
PT SLEEPING AT THIS TIME.
--- NOTE | 2020-06-02 13:21 | NUR ---
PRECAUTIONS DO NOT ALLOW ME TO VISIT. PT IS TO DC LATER TODAY. WILL FOLLOW
--- NOTE | 2020-06-02 13:22 | NUR ---
Pt complains of sob since his physical therapy. Sat remains in the 90's at this time, unable to listen to his lungs due to PPE. Lasix given as ordered and MD will be notified to the increased SOB. It is to soon for another neb treatment. Pt in his bed with his head elevated. See assessment.
--- NOTE | 2020-06-02 13:37 | NUR ---
DR WEST NOTIFED OF THE PT'S SOB, NEW ORDERS RECEIVED, SEE EMAR. WILL CONTINUE TO MONITOR.
--- NOTE | 2020-06-02 15:05 | NUR ---
1450: Pt continues to complain of SOB, RT called and notifed and is now giving the pt a neb treatment. Dr Tobar notified of the pt's continued SOB and increased RR and he states he will check in on the pt.
--- NOTE | 2020-06-02 15:14 | NUR ---
Pt being placed on CPAP at this time by RT.
--- NOTE | 2020-06-02 15:54 | NUR ---
ROSA BLOOD GAS BLOOD DRAWN ORDERED. PT NOW ON CPAP, SEE RT NOTES FOR SETTINGS. PT STATES HIS BREATHING IS FEELING BETTER AND HE APPEARS MORE COMFORTABLE. SAT IS 94% AND HIS RR IS 20 AT THIS TIME.
--- NOTE | 2020-06-02 17:04 | NUR ---
REPORT CALLED TO VANDANA SHABAZZ IN CCU, PT BEING TRANSFERED AT THIS TIME.
--- NOTE | 2020-06-02 17:51 | NUR ---
PATIENT ARRIVED TO THE CCU ROOM 127 WITH THIS RN. PATIENT TRANSFERED ON 2L NC. RT AT THE BEDSIDE TO SETUP CPAP. PATIENT REFUSING TO WEAR IT AT TIME OF TRANSFER. PATIENT EDUCATED ON CPAP AND PATIENT IS AGREEABLE TO WEARING IT AFTER HE HAS AN ENSURE FOR DINNER. PATIENT REFUSES OTHER DINNER OPTIONS AT THIS TIME. REORIENTED TO ROOM. PATIENT UNABLE TO LISTEN TO BREATH SOUNDS D/T WEARING A PAPR. PATIENT DENEIS ANY OTHER NEEDS AT THIS TIME. PATIEN ON 3L NC. WILL CONTINUE TO CLOSELY MONITOR.
--- NOTE | 2020-06-02 18:40 | NUR ---
CALLED MD WEST TO UPDATE ABOUT PATIENT. PER MD WEST MAY PLACE PATIENT BACK ON LUMBER HACKER SINCE HE IS NOW A CCU PATIENT. UPDATED THAT PATIENT DID NOT WANT TO WEAR THE CPAP, BUT STAFF WERE ABLE TO ENCOURAGE HIM TO TRY IT AGAIN. NO OTHER NEEDS AT THIS TIME. THIS RN IN TO PLACE PATIENT ON CPAP. PATIENT AGREEABLE TO PLAN OF CARE. WILL ENCOURAGE PATIENT TO WEAR CPAP FOR LONG HE CAN TOLERATE. CALL LIGHT IN REACH. NO OTHER NEEDS AT THIS TIME.
--- NOTE | 2020-06-02 19:39 | NUR ---
PATIENT REMOVED CPAP WHILE SLEEPING. REPLACED MASK. PATIENT RESTING ON SIDE. A FEW MINS LATER THE PATIENT REMOVED THE MASK AGAIN AND DESAT TO 86% ON ROOM AIR RIGHT AWAY. 5L NC PLACED. PATIENT USING URNAL. O2 SAT 90%, RR 26.
--- NOTE | 2020-06-02 20:30 | NUR ---
PATIENT REFUSING TO WEAR CPAP AT THIS TIME. SWITCHED TO 5L NC. PATIENT IS AAOX4. LUNGS ARE CLEAR IN PETER UPPERS AND CRACKLES IN PETER LOWER LOBES. LOOSE COUGH NOTED. PRN MEDS PROVIDED. PATIENT FEELS THAT TYLENOL HELPS HIM RELAX AND BREATH EASIER SO IT WAS GIVEN WELL. PATIENT'S VS STABLE. ORAL TEMP WNL. NEW ATTENDS IN PLACE AND SAGAR CARE DONE. PATIENT USING URNAL INDEPENDENTLY. ACCU CHECK AND SSI PER ORDER. PATIENT HAS TRACE EDEMA IN PETER LOWER EXTREMITITES. DENIED ANY FURTHER NEEDS, CALL LIGHT IN REACH.
--- NOTE | 2020-06-02 22:06 | NUR ---
PATIENT APPEARS TO BE SLEEPING SOUNDLY ON HIS RIGHT SIDE. O2 SATS 94-96% ON 5L NC.
--- NOTE | 2020-06-02 23:00 | NUR ---
PATIENT UP TO BSC TO HAVE BM. TOLERATED ACTIVITY WELL. 5L NC. ALEX IN ROOM TO ASSIST. PATIENT PROVIDED WITH A SNACK AND IS RESTING IN BED.
--- NOTE | 2020-06-03 01:27 | NUR ---
PATIENT APPEARS TO BE SLEEPING. O2 SAT 92% ON 5L NC. CALL LIGHT IN REACH. ALLOWED PATIENT TO REST.
--- NOTE | 2020-06-03 04:50 | NUR ---
PATIENT REQUESTED FRESH ICE WATER, WHICH WAS PROVIDED. URNAL EMPTIED. PATIENT TOLERATING 5L NC, AUDIBLE WHEEZES HEARD AND LABORED BREATHING. CRACKLES IN PETER BASES. PATIENT DENIED HAVING A NEB TREATMENT AT THIS TIME. REQUEST PRN TYLENOL. MORNING LABS DRAWN. VS STABLE.
--- NOTE | 2020-06-03 05:57 | NUR ---
PATIENT AGREES TO HAVE NEB TREATMENT AT THIS TIME, RT IN ROOM.
--- NOTE | 2020-06-03 08:18 | NUR ---
LAB CALLED FOR BLOOD SAMPLE THAT THEY ARE WAITING FOR. RN NOTIFIED.
--- NOTE | 2020-06-03 08:30 | NUR ---
PATIENT CALLED AND REQUESTED UP TO THE CHAIR. RT IN PATIENTS ROOM AND ASSISTED HIM TO THE CHAIR. PATIENT TOLERATED WELL. NO OTHER REQUESTS AT THIS TIME. CALL LIGHT ON PATIENTS LAP. WILL CONTINUE TO CLOSELY MONITOR.
--- NOTE | 2020-06-03 09:00 | NUR ---
THIS RN IN ROOM WITH PATIENT. MEDICATIONS ADMINISTERED. PATIENT STATES "MY BREATHING IS HARDER AFTER I DID THE INCENTIVE SPIROMETER". PATIENT AGREED TO WEARING CPAP FOR A LITTLE WHILE. NO OTHER NEEDS AT THIS TIME. WILL OCNTINUE TO CLOSELY MONTIOR.
--- NOTE | 2020-06-03 09:30 | NUR ---
Update by Rn, pt now DNR. Pt refusing CPAP.
--- NOTE | 2020-06-03 10:30 | NUR ---
PATIENT OFF CPAP. PATIENT REPORTS A LITTLE BIT OF IMPROVEMENT AFTER WEARING THE CPAP. PATIENTS ASSESSMENT WAS COMPLETED THIS AM. UNABLE TO LISTEN TO BREATH SOUNDS, BOWEL TONES, AND HEART TONES D/T RN WEARING PAPR. PATIENT HAS A PRODUCTIVE COUGH NOTED. TRACE EDEMA IN BILATERAL LOWER EXTREMITIES. PATIENT REPORTS NO BM FOR A DAY. WILL MONITOR AND GIVE STOOL SOFTENER IF NEEDED. PATIENT NOW RESTING ON 5L NC ON THE HIGH FLOW GREEN NASAL CANNULA. WEST IN TO SEE PATIENT. SEE NEW ORDERS.
--- NOTE | 2020-06-03 12:30 | NUR ---
THIS RN IN TO SEE PATIENT. MEDICATIONS ADMINISTERED. PATIENT SITTING UP IN THE CHAIR AT THIS TIME. PATIENT TOLERATING WELL. PATIENT WORKING ON SOME MASHED POTATOES. NO OTHER NEEDS AT THIS TIME. WILL CONTINUE TO CLOSELY MONITOR.
--- NOTE | 2020-06-03 13:40 | NUR ---
PATIENT REQUESTED COUGH SYRUP. IN TO GIVE PATIENT MEDICATIONS. ASSISTED PATIENT BACK TO BED. PATIENT TOLERATED WELL. PATIENT ON 5L NC WITH SPO2 94%. PATIENT TURNING TO HIS SIDE TO REST FOR AWHILE. WILL CONTINUE TO CLOSELY MONITOR.
--- NOTE | 2020-06-03 15:30 | NUR ---
PATIENT RESTING IN BED. PATIENT REMAINS ON 5L NC AND TOELRATING WELL. PATIENT REPORTS "I FEEL BETTER THAN YESTERDAY". PATIENT REQUESTED TO CONTINUE RESTING. NO OTHER NEEDS AT THIS TIME. WILL CONTINUE TO CLOSELY MONITOR.
--- NOTE | 2020-06-03 18:34 | NUR ---
THIS RN IN PATIENTS ROOM TO GIVE MEDICATIONS AND ASSIST PATIENT WITH HIS DINNER. PATIENT SITTING UP IN BED EATING A BOILED EGG. ENSURE PROVIDED WELL. PATIENT DENIES ANY OTHER NEEDS AT THIS TIME. WILL CONTINUE TO CLOSELY MONITOR.
--- NOTE | 2020-06-03 19:30 | NUR ---
REPORT RECEIVED FROM VANDANA SHABAZZ. PT RESTING IN BED, OXYGEN AT 5L/HIGH FLOW CANNULA IN PLACE, SPO2 93%.
--- NOTE | 2020-06-03 20:15 | NUR ---
IN TO DO ASSESSMENT AND HS MEDS. PT UP TO BSC WITH URGE TO HAVE A BOWEL MOVEMENT BUT VOIDS ONLY ONTO FLOOR. BACK TO BED. LUNGS HAVE FINE CRACKLES IN BASES. WANTS LIGHTS OFF TO TRY TO SLEEP. CALL LIGHT IN REACH.
--- NOTE | 2020-06-03 23:00 | NUR ---
pt USED CALL LIGHT TO ASK FOR ASSSISTANCE INTO THE CHAIR. STATING "I AM HAVING BACK SPASMS" WARM BLANKET GIVEN, BST WITHIN REACH, CALL LIGHT NECT TO pt. STATES HE WILL CALL WHEN HE'D LIKE TO GET BACK INTO BED.
--- NOTE | 2020-06-04 00:15 | NUR ---
PT CALLS TO GET BACK INTO BED. ABLE TO TRANSFER HIMSELF, SBA. ASSESSMENT DONE, PT DENIES FURTHER NEEDS, CALL LIGHT IN REACH.
--- NOTE | 2020-06-04 00:30 | NUR ---
SBA with pt to BSC, medium BM produced. oxygen tubing, and cords were adjusted. pt did not need anything further at this time.
--- NOTE | 2020-06-04 02:50 | NUR ---
CALL TO DR WEST, UPDATED REGARDING HR AND INCREASED O2 NEEDS, ORDER GIVEN TO INCREASE LOPRESSOR DOSE.
--- NOTE | 2020-06-04 04:13 | NUR ---
PT AWAKE IN BED, ASSESSMENT DONE. DENIES NEEDS. HR HAS COME DOWN TO 70-80'S. SPO2 93% ON 10L/HIGH FLOW CANNULA.
--- NOTE | 2020-06-04 05:25 | NUR ---
IN TO CHECK ON PT AND DRAW LABS, PT STATES "I CANT BREATHE", SPO2 IN 90'S, RR HIGH 20'S, OXYGEN HFNC AT 10L, LUNGS CONT TO HAVE FINE CRACKLES IN BASES AND SLIGHT RHONCHI HEARD ON EXPIRATION. WILL PLACE PT ON CPAP AND REEVALUATE.
--- NOTE | 2020-06-04 06:00 | NUR ---
ASKED PT IF HE FEELS LIKE HIS BREATHING IS ANY BETTER, HE STATES "I DONT KNOW ITS HARD TO TELL", RESP STILL LOOK MORE LABORED. SPO2 HAS STARTED TO DROP DOWN TO 88-90% WITH CPAP ON 30% FIO2, SO FIO2 TURNED UP TO 50% AND NOW SPO2 97%.
--- NOTE | 2020-06-04 06:10 | NUR ---
CALL TO DR WEST TO UPDATE REGARDING PTS INCREASED WORK OF BREATHING AND O2 NEEDS. ORDER GIVEN FOR 20MG IV LASIX ONCE, INCREASE CPAP PRESSURE TO 10 AND AWAIT LAB RESULTS.
--- NOTE | 2020-06-04 07:06 | NUR ---
PT CONT TO SIT IN BED WITH CPAP IN PLACE, 50% FIO2. 20MG IV LASIX HAS BEEN GIVEN. PT ASKED "DOES THE DOCTOR HAVE ANY IDEAS?", INFORMED OF PLAN FOR LASIX AND CHECK AM LAB RESULTS.
--- NOTE | 2020-06-04 07:30 | NUR ---
PATIENT REPORT RECIEVED FROM AUDIO VISUAL AIDS DIRECTOR RN. PATIENT RESTING IN BED AT THIS TIME. RN LE IN TO ANSWER CALL LIGHT AND GIVE PRN MEDICATION.
--- NOTE | 2020-06-04 07:37 | NUR ---
CALL LIGHT ON. pt REQUESTED TO BE TAKEN OFF CPAP, HIGH FLOW NC AT 10L IN PLACE SAT HIGH 90'S.
--- NOTE | 2020-06-04 07:42 | NUR ---
REQUESTED TYLENOL "BECAUSE IT SOFTENS IT UP" GIVEN WITH SCHEDULED MED AND PRN COUGH MED. NO FURTHER REQUESTS AT THIS TIME. CALL LIGHT WITHIN REACH.
--- NOTE | 2020-06-04 09:00 | NUR ---
THIS RN IN WITH PATIENT. PATIENT RESTING IN BED AT THIS TIME. PATIENT REPORT BETTER BREATHING NOW THAN A EARLY THIS AM. TITRATED PATIENT TO 8L NC FROM 10L. WILL MONITOR SPO2. PATIENT HAS AN OCCASIOANL CONGESTED COUGH WITH MUCUS PRODUCTION. PATIENT BREATH SOUNDS CLEAR AND DIMINISHED IN BASES WITH SOME FINE CRACKLES. PATIENT HAS IS AND AQAPELLA AT THE BEDSIDE AND USES APPROPRIATELY. PATIENT ABLE TO MOVE HIMSELF UP IN BED ON HIS OWN. PATIENT SITTING UP. MEDICATIONS GIVEN. ALL QUESTIONS ANSWERED. NO OTHER NEEDS AT THIS TIME. WILL CONTINUE TO CLOSELY MONITOR.
--- NOTE | 2020-06-04 09:30 | NUR ---
SPOKE WITH MD. PATIENTS BLOOD PRESSURE IS 90'S SYSTOLIC. MANUAL PRESSURE TAKEN AND NOTED TO BE 90/60. WILL HOLD METOPROLOL AT THIS TIME AND MONITOR BLOOD PRESSURE.
--- NOTE | 2020-06-04 11:00 | NUR ---
PATIENTS BLOOD PRESSURE BETTER NOW. GAVE PATIENTS DOSE OF METOPROLOL. NO OTHER NEEDS AT THIS TIME. WILL CONTINUE TO CLOSELY MONITOR.
--- NOTE | 2020-06-04 13:45 | NUR ---
THIS RN IN ROOM. PATIENT REPOSITIONED. PATIENT CONTINUES TO HAVE A PRODUCTIVE COUGH. PATIENT REPOSRT NOT BEING ABLE TO USE THE IS AND AQAPELLA BECAUSE IT MAKES HIM TO SOB. NO OTHER NEEDS AT THIS TIME. WILL CONTINEU TO CLOSELY MONITOR.
--- NOTE | 2020-06-04 14:45 | NUR ---
ASSSITED PATIENT BACK TO BED AND PLACED PATIENT ONTO CPAP FOR RECOOPERATION. PATIENT AGREEABLE TO PLAN OF CARE. PATIENT CALL LIGHT PROVIDED AND PATIENT RESTING ON HIS RIGHT SIDE AT THIS TIME. WILL CONTINUE TO CLOSELY MONITOR.
--- NOTE | 2020-06-04 15:10 | NUR ---
PATIENT LAURA RUDOLPH REQUESTED TO GO BACK ON THE NASAL CANNULA. RT IN THE ROOM AND SWITCHED PATIENT BACK TO CANNULA. NO OTHER NEEDS AT THIS TIME. WILL CONTINUE TO CLOSELY MONITOR.
--- NOTE | 2020-06-04 16:30 | NUR ---
THIS RN AT THE BEDSIDE TO TRANSPORT PATIENT TO CT.
--- NOTE | 2020-06-04 17:30 | NUR ---
THIS RN WITH PATIENT DOWNM TO CT. PATIENT PLACED ON 10L OXYMASK FOR CT SCAN. PATIENT TOLERATED WELL. ALL LINEN WAS CHANGED PRIOR TO PATIENT GETTING BACK TO BED. DINNER ORDERED AND MEDICATIONS GIVEN. PATIENT STATES "MY BREATHING IS A LITTLE BETTER AGAIN". PATIENTS BREATHING EFFORT WORSENS AND THEN IS A LITTLE BETTER AT TIMES. PATIENT HAS VERY LITTLE RESEVERE AND BECOMES SOB WITH JUST SITTING AT TIMES. PATIENT PLACED BACK ON 6L NC ONCE BACK IN THE ROOM AND SPO2 95%. PATIENT DENIES ANY OTHER NEEDS AT THIS TIME. WILL CONTINUE TO CLOSELY MONITOR.
--- NOTE | 2020-06-04 19:35 | NUR ---
assisted pt to BSC, 75ccs of clear yellow urine, pt back to bed SBA for cord management. blood sugar check was complete. nothing further needed at this time.
--- NOTE | 2020-06-04 19:51 | NUR ---
PT UP TO BSC, VOIDED THEN ASSISTED BACK TO BED. SLIGHTLY MORE SOB WITH ACTIVITY BUT ONCE BACK TO BED HE STATES HE FEELS "PRETTY GOOD", SPO2 97% ON 5L/HIGH FLOW NC. HR EIGHTIES. LUNGS HAVE FINE CRACKLES IN BASES AND PRISON UP LEFT LUNG. TYLENOL GIVEN FOR BACK PAIN AND PT WANTING TO GO TO SLEEP.
--- NOTE | 2020-06-04 20:55 | NUR ---
IN TO DO ASSESSMENT, PT STATES "I WAS FINALLY GETTING SOME GOOD SLEEP". ASSESSMENT DONE, LUNGS CLEAR PT HAS FREQUENT PRODUCTIVE SOUNDING COUGH, USING IS AND ACAPELLA. ON 3L/O2/NC WITH SPO2 92-94%. PLAN OF CARE FOR THE NIGHT AND NEXT DOSE OF REMDESIVIR WELL PRONING DISCUSSED WITH PT AND HE IS AGREEABLE.
--- NOTE | 2020-06-04 21:15 | NUR ---
PT CALLS TO ASK TO GET INTO CHAIR. HELPED TO GET HIM TO CHAIR, COVERED WITH BLANKET AND CALL LIGHT IN HAND.
--- NOTE | 2020-06-04 21:45 | NUR ---
PT CALLS TO HAVE RECLINER LEANED BACK, NO FURTHER REQUESTS.
--- NOTE | 2020-06-04 22:40 | NUR ---
PT CALLS TO ASK TO GET BACK IN BED. STATES HE IS HAVING BACK SPASMS AND THINKS THE BED WILL HELP. ASSISTED WITH REPOSITIONING IN BED, URINAL EMPTIED AND NO FURTHER REQUESTS. CALL LIGHT IN REACH.
--- NOTE | 2020-06-05 | NUR ---
IN TO DO ASSESSMENT, PT RESTFUL FINALLY. RESP EVEN AND UNLABORED, REMAINS ON 5L/O2, RR 12 AND SPO2 96%.
--- NOTE | 2020-06-05 02:00 | NUR ---
IN TO GIVE PO METOPROLOL, PT DENIES NEEDS.
--- NOTE | 2020-06-05 04:45 | NUR ---
IN TO DO ASSESSMENT AND DRAW LABS. PT AWAKENS EASILY, NO COMPLAINTS. ASKED HOW HIS BREATHING FEELS AND HE STATES "ITS A LITTLE RATTLEY", CONT TO HAVE A PRODUCTIVE COUGH, LUNGS WITH CRACKLES IN BASES AND SOME RHONCHI THROUGHOUT. SPO2 HAS GONE UP OVER THE LAST FEW HOURS, NOW 97% ON 5L/O2. RR 16 AND DOES NOT LOOK LABORED.
--- NOTE | 2020-06-05 06:30 | NUR ---
PT AWAKE IN BED, DENIES NEEDS.
--- NOTE | 2020-06-05 08:30 | NUR ---
REPORT RECEIVED FROM NIGHT RN AND CARE RESUMED. COARSE CRACKLES AUSCULTATED IN BASES BILAT. OF LUNGS. WHEEZES PRESENT IN AMANDA. PT. DENIES PAIN AND APPEARS FATIGUED. PT. ORIENTED. IV SITE WNL AND FLUSHES WELL. PT. ON 6L O2 AND SAT. IS 91%. PT. VOIDED 400ML BEDSIDE IN URINE. PT. LEFT RESTING IN BED WITH CALL LIGHT IN REACH.
--- NOTE | 2020-06-05 11:00 | NUR ---
PATIENT GIVEN METOPROLOL AND KAYEXELATE MIXED WITH 30ML OF CRANBERRY JUICE. TOLERATED WELL. SPUTUM CULTURE TAKEN. PT. ON 6L O2 AND SAT. IS 96%. PT. ABLE TO REPOSITION INDEPENDENTLY. PT. LEFT RESTING IN BED WITH CALL LIGHT IN REACH.
--- NOTE | 2020-06-05 11:52 | NUR ---
PATIENT USES CALL LIGHT AND STATES HE "CANNOT GET MY BREATH." INTO ROOM FOR ASSESSMENT. SOME COARSE SOUNDS NOTED IN UPPER AIRWAYS. NO WHEEZING. RT CALLED AND NOW IN ROOM TO GIVE PATIENT A NEB TX. PT VISIBLY DOES SEEM TO BE WORKING HARD TO BREATH. WILL CONTINUE TO MONITOR.
--- NOTE | 2020-06-05 12:00 | NUR ---
PATIENT ASSESSMENT COMPLETED. BLOOD GLUCOSE WAS 382. LUNGS COARSE THROUGHOUT AND WHEEZES AUSCULTATED IN RUL. PT. DENIES PAIN. PT. USES OVERHEAD BAR TO REPOSITION HIMSELF IN BED. BREATHING IS LABORED AND RR IS 25. PT. ON 6L OF 02 AND SAT. IS 96%. IV SITE WNL. PT. LEFT EATING LUNCH WITH CALL LIGHT IN REACH.
--- NOTE | 2020-06-05 12:15 | NUR ---
UPDATED DR. WEST ON PATIENT'S IRREGULAR BREATHING PATTERN AND HIS C/O SHORTNESS OF BREATH. RT FINISHES GIVING NEB TO PATIENT, WHICH INCLUDED THE MUCOMYST. SP02 REMAINS ADEQUATE ON THE 6 L NC DURING THIS TIME, CURRENTLY 96%. WILL CONTINUE TO MONITOR.
--- NOTE | 2020-06-05 14:15 | NUR ---
PATIENT AMBULATED TO THE BEDSIDE COMMODE. HR INCREASED TO 122. PT. HAD A LARGE FORMED BM AND VOIDED 100ML. BEDDING CHANGED AND SAGAR CARE PERFORMED. PT. DENIES PAIN AND STATES THAT HE FEELS LESS SHORT OF BREATH AND HAS HAD LESS COUGHING SINCE THE MUCOMIST TX. PT. LEFT RESTING IN BED WITH CALL LIGHT IN REACH.
--- NOTE | 2020-06-05 15:09 | NUR ---
BLOOD GLUCOSE WAS 442 AND WAS GIVEN [address] WEST NOTIFIED.
--- NOTE | 2020-06-05 15:59 | NUR ---
PATIENT REQUESTS ROBITUSSIN FOR COUGH. COUGH LESS PRODUCTIVE AND OCCASIONAL. PT. REMAINS ON 6L OF O2 AND SAT IS 92%. IV SITE WNL. PT. GIVEN A BED BATH AND NEW GOWN. PT. DENIES PAIN AND IS AFEBRILE. PT IN WITH PATIENT.
--- NOTE | 2020-06-05 17:19 | NUR ---
PATIENT GIVEN 9 UNITS HUMALOG AND DINNER DELIVERED. ASSISTED WITH REPOSITIONING IN BED AND URINAL EMPTIED OF 25ML CLEAR YELLOW URINE.
--- NOTE | 2020-06-05 18:12 | NUR ---
PATIENT USED CALL LIGHT APPROPRIATELY. HE HAD A LARGE BM AND AMBULATED TO THE COMMODE AND TOLERATED WELL. PT. FINISHED HALF OF LARGE DINNER AND AN ENSURE HIGH PROTEIN. PT. HAD A PRODUCTIVE COUGH AND COUGHED UP A LARGE AMOUNT OF YELLOW/GREEN SPUTUM. PATIENT LEFT RESTING IN BED WITH CALL LIGHT IN REACH.
--- NOTE | 2020-06-05 19:30 | NUR ---
REPORT RECEIVED FROM ESSENCE SHABAZZ. PT IN BED, EYES CLOSED, RESP EVEN AND UNLABORED ON 3L/O2 SPO2 94%.
--- NOTE | 2020-06-05 20:00 | NUR ---
IN TO DO ASSESSMENT AND GIVE HS MEDS. PT IS SLEEPING, SLEEPS THROUGH MUCH OF ASSESSMENT, THEN WAKES UP. ASKED HOW HE IS DOING HE SATES "ALRIGHT I GUESS", NO COMPLAINTS. REPORTS BREATHING IS "PRETTY GOOD". HS MEDS GIVEN, HELPED TO REPOSITION AND THEN BACK TO SLEEP.
--- NOTE | 2020-06-05 20:45 | NUR ---
RT IN TO DO SCHEDULED NEB TX
--- NOTE | 2020-06-05 21:20 | NUR ---
PT CALLS TO STATE HE FEELS LIKE HE IS NOT ABLE TO COUGH UP ALL OF HIS MUCOUS. ENCOURAGED HIM TO COUGH, IS AND ACAPELLA DONE. HE STATES "THEY SAY THESE WORK BUT THEY DONT DO ANYTHING" COUGHED SOME AND THEN BACK TO SLEEP
--- NOTE | 2020-06-06 00:45 | NUR ---
PT CALLS FOR SANDWICH AND TO SIT UP IN CHAIR, ASSESSMENT DONE, UNCHANGED FROM EARLIER.
--- NOTE | 2020-06-06 01:50 | NUR ---
PT SITTING UP IN CHAIR, EATING SANDWICH.
--- NOTE | 2020-06-06 03:20 | NUR ---
PT CALLS OUT TO GET BACK IN BED, ASSISTED BACK TO BED, NO FURTHER REQUESTS.
--- NOTE | 2020-06-06 04:14 | NUR ---
PT RESTING, RESP EVEN AND UNLABORED, SPO2 97%
--- NOTE | 2020-06-06 07:24 | NUR ---
DR WEST IN TO SEE PT.
--- NOTE | 2020-06-06 07:56 | NUR ---
IN PATIENT'S ROOM FOR ASSESSMENT AND VITALS. PT STATES HE ISN'T FEELING ANY BETTER OVERALL, AND THAT HIS BREATHNG, "ISNT ANY BETTER. I COMPLAIN AND COMPLAIN ABOUT THE SAME THING, GETTING THE STUFF UP TO RIGHT HERE AND THEN I CAN'T GET IT OUT." DISCUSSED THIS WITH PATIENT. PATIENT IS GETTING MUCOMYST TO SEE IF THE THICK PRODUCTIVE SPUTUM CAN BE AT ALL HELPED TO EXPECTORATE EASIER. PT HAS BEEN COUGHING UP THICK GREEN SPUTUM. APICAL PULSE AROUND 60s, RADIAL PULSE REMAINS 30-70s, DEPENDING ON HIS RHYTHM. PT IS NOT ON TELE, JUST PULSE OX. UPPER LUNG SOUNDS RELATIVELY CLEAR THIS AM WITH SOME EXP WHEEZING. BREAKFAST ORDERED FOR PATIENT. NEW IV TO BE STARTED AND BLOOD TO BE DRAWN. RT NOW COMING INTO ROOM TO GIVE NEB TX. PLAN OF DAY DISCUSSED WITH PATIENT.
--- NOTE | 2020-06-06 09:09 | NUR ---
PATIENT UP TO CHAIR FOR BREAKFAST BUT NOW WANTING TO GET BACK INTO BED. 1 PERSON STANDBY ASSIST FOR THIS ACTIVITY. OXYGEN TURNED DOWNT O 3 L NC. WILL CONTINUE TO MONITR. SP02 IS 92% AT THIS TIME.
--- NOTE | 2020-06-06 09:31 | NUR ---
PATIENT ABLE TO AMBULATE INTO BATHROOM TO ATTEMPT TO HAVE A BM WITH A FWW AND SBA, ON 4 L NC. PT TOLERATED FAIRLY WELL. PT NOW BACK IN BED AND REQUESTING COUGH MEDICINE. PT HAS A PRODUCTIVE COUGH AND IS COUGHING UP YELLOWISH/GREENISH SPUTUM, BUT IT DOES SEEM LESS TENACIOUS THAN IT DID EARLIER. PT USING CALL LIGHT APPROPRIATELY.
--- NOTE | 2020-06-06 10:37 | NUR ---
PATIENT CALLS AND REQUESTING AN ENSURE TO DRINK. PT PROVIDED WITH THIS, AND COLLECTED PATIENT'S LUNCH ORDER. PT HAS BEEN RESTING IN BED, NAPPING ON AND OFF, AND MAINTAINING SP02 >90% ON 3 L NC. WILL CONTINUE TO MONITOR.
--- NOTE | 2020-06-06 11:31 | NUR ---
PHYS THERAPY GOING IN TO WORK WIHT PATIENT. PATIENT UP IN CHAIR PER HIS REQUEST. VITALS TAKEN AND ASSESSMENT COMPLETE. LAST BP 127/92 (101). CONTINUE TO MONITOR.
--- NOTE | 2020-06-06 13:19 | NUR ---
PATIENT CALLS ADN STATES HE DOESN'T FEEL GOOD, AND THAT HE CAN'T QUITE DESCRIBE HOW HE FEELS, BUT JUST FEELS OFF. PT HELPED BACK TO BED X1 SBA. PT WANTING SOME TYLENOL AND GIVEN THIS AT THIS TIME. PT CONTINUES TO HAVE A PRODUCTIVE COUGH. PT STATES, "THIS IS JUST HARD. ESPECIALLY WHEN I DON'T KNOW WHAT'S WRONG WITH ME." DISCUSSED WITH PATIENT HIS DIAGNOSIS AND HIS TREATMENT PLANS, WHICH HE SEEMED TO UNDERSTAND FAIRLY WELL. WILL CONTINUE TO MONITOR.
--- NOTE | 2020-06-06 14:17 | NUR ---
PT SEEMS TO BE DEALING WITH SOME DEPRESSION WITH WHAT HARIKA KIM HAS DESCRIBED. OFFERED TO VISIT WITH PT BY PHONE, NO RESPONSE YET. WILL FOLLOW NEEDED
--- NOTE | 2020-06-06 14:39 | NUR ---
OCCASIONAL O2 DESTAURATION TO 89% ON 3L NC. LOOKED IN ON PATIENT, PATIENT LAYING ON SIDE. APPEARS TO BE RESTING COMFORTABLY WITH O2 IN PLACE.
--- NOTE | 2020-06-06 16:58 | NUR ---
Discussed in [address]ar. feels he will need SNF placement. Family on not in agreement. Will call.
--- NOTE | 2020-06-06 17:00 | NUR ---
Attempted to call daughter, no answer.
--- NOTE | 2020-06-06 17:07 | NUR ---
IN [facility]'S ROOM FOR ASSESSMENT AND VITALS. BED BATH GIVEN. NEW GOWN PROVIDED. PT NOW UP IN CHAIR WAITING FOR DINNER. PT WAS ABLE TO TAKE A NAP THIS AFTERNOON AND STATES HE FEELS A LITTLE BETTER COMPARED TO EARLIER TODAY. STILL HAVING FREQ COUGH AND COUGHING UP SPUTUM AT TIMES. REMAINS ON 3 L NC. BREATHIGN VARIES FROM LABORED, TO TACHYPNEIC, TO NORMAL, TO EVEN SOME SHORT APNEIC PERIODS. CALL LIGHT WITHIN REACH.
--- NOTE | 2020-06-06 19:30 | NUR ---
REPORT RECEIVED FROM JULIO SHABAZZ. PT JUST BACK INTO BED FROM GETTING UP TO BATHROOM WITH BED ALARM ON.
--- NOTE | 2020-06-06 20:25 | NUR ---
IN TO DO ASSESSMENT. LUNGS HAVE CRACKLES IN BASES AND COARSE SOUNDS THROUGHOUT BILAT. UP TO CHAIR PER REQUEST, SOB WITH ACTIVITY, SITTING UP IN CHAIR RECOVERING WITH CALL LIGHT IN HAND AND RT STARTING SCHEDULED NEB TX.
--- NOTE | 2020-06-06 21:50 | NUR ---
PT CALLS TO GET BACK IN TO BED, WANTS TO GO TO SLEEP FOR THE NIGHT NOW. ASSISTED BACK TO BED, CALL LIGHT IN REACH.
--- NOTE | 2020-06-07 00:02 | NUR ---
PT CALLS TO STATE HE IS HAVING TROUBLE SLEEPING. UP TO CHAIR. ASSESSMENT DONE. STATES "I KEEP HAVING BACK SPASMS". WILL TRY SITTING UP AND CALL IF HE WANTS TO GET BACK IN BED. SPO2 DOWN TO 85% WITH MOVING FROM BED TO CHAIR WITH 3L/O2, UP TO 93% AFTER A COUPLE OF MINUTES.
--- NOTE | 2020-06-07 00:35 | NUR ---
PT WANTS TO GO BACK TO BED, HELPED TO SITUAATE HIM IN BED, WARM PACK TO BACK, CALL LIGHT IN HAND.
--- NOTE | 2020-06-07 01:30 | NUR ---
PT CALLS, ASKS IF HE HAS ANYTHING FOR SLEEP. ROBITUSSIN GIVEN. WILL TRY TO SLEEP NOW.
--- NOTE | 2020-06-07 03:33 | NUR ---
PT CALLS, STATES "YEAH I WAS ABLE TO SLEEP FOR A LITTLE", UP TO CHAIR WITH CALL LIGHT IN HAND. ENSURE GIVEN.
--- NOTE | 2020-06-07 06:15 | NUR ---
PT STARTED HAVING LOWER SPO2, DOWN TO 85%, IN TO CHECK ON HIM AND HE STATES "I CANT BREATHE GOOD", IS SITTING UP AT THE EDGE OF THE BED, O2 IN PLACE, TRIED TO ENCOURAGE HIM TO RELAX BREATHING, LESSEN ANXIETY. LUNGS SOUND MORE CLEAR BUT DIM THROUGHOUT. HELPED PT UP INTO BED AND PLACED CPAP AND ALLOWED HIM TO SIT ON CPAP APPROX ONE HOUR.
--- NOTE | 2020-06-07 07:30 | NUR ---
AFTER BEING ON CPAP ONE HOUR, PT CALLS TO HAVE IT REMOVED, REPORTS NOT SURE IF HIS BREATHING IS ANY BETTER BUT HIS SATS ARE HIGHER UP TO 94-97% WITH CPAP SET AT 10 AND FIO2 50%. WORK OF BREATHING IS LESS AND PT LOOKS MORE CALM.
--- NOTE | 2020-06-07 08:35 | NUR ---
IN PATIENT'S ROOM FOR ASSESSMENT, VITALS, MEDICATIONS. PT IS COUGHING QUITE A BIT AND BOTHERED BY THIS. RT WAS IN AND GAVE NEB TXS. PT STATES HE DOESN'T WANT BREAKFAST, ONLY AN ENSURE. PT OVERALL SEEMS DISCOURAGED ABOUT HOW HE FEELS AND THE GENERAL SITUATION. PT ON 4 L NC. SHORTNESS OF BREATH AND WORK OF BREATHING EVIDENT. SP02 IS 93% ON 4L. DISCUSSING WITH CASE MANAGEMENT THE PLAN FOR DISPO WITH THIS PATIENT. POTENTIALLY WILL RE-SWAB FOR COVID TODAY. CALL LIGHT WITHIN REACH. PT REMAINS IN BED AT THIS TIME. PRN TYLENOL AND COUGH MEDICATION GIVEN. CONTINUE TO MONITOR.
--- NOTE | 2020-06-07 09:04 | NUR ---
BREAKFAST BROUGHT INTO PATIENT'S ROOM. EVEN THOUGH PATIENT SAID HE DIDN'T WANT ANY BREAKFAST, HE IS EATING HIS FOOD. PT VOIDS TO URINAL WELL.
--- NOTE | 2020-06-07 09:20 | NUR ---
CAlled and left a message for pt's daughter, unable to contact.
--- NOTE | 2020-06-07 09:30 | NUR ---
both nares swabbed for covid-19 without complication. sample taken to [facility] for rapid testing.
--- NOTE | 2020-06-07 09:34 | NUR ---
RT IN ROOM AND COLLECTED COVID SWAB PER DR. PALMER'S ORDER. PT TOLERATED WELL.
--- NOTE | 2020-06-07 10:27 | NUR ---
PATIENT UP TO CHAIR AND STANDING WEIGHT TAKEN. PT ATE 100% OF HIS BREAKFAST. CALL LIGHT WITHIN REACH. PT REMAINS ON 3 L NC.
--- NOTE | 2020-06-07 11:10 | NUR ---
PATIENT HELPED BACK TO BED FROM CHAIR. PT RESTLESS AND NOT SURE IF HE WANTS TO STAY IN CHAIR OR REST IN BED.
--- NOTE | 2020-06-07 12:20 | NUR ---
PATIENT UP TO BATHROOM. BATH GIVEN AND LINEN, GOWN CHANGED. ASSESSMENT COMPLETE. CRACKLES TO B ASES REMAIN. PRODUCTIVE COUGH - RT IN ROOM GIVING NEB TXs. WAITING FOR LUNCH NOW. CONTINUE TO MONITOR. DR. PALMER TO BE IN TO SEE PATIENT.
--- NOTE | 2020-06-07 12:28 | NUR ---
PT STILL ON PRECAUTIONS, WILL STAY NEAR IF NEEDED
--- NOTE | 2020-06-07 13:17 | NUR ---
Called and had lengthy discussion with pt's daughter Radha. Discussed pt may be able to dc tomorrow if he is doing well, per Dr. Coronel's visit. Daughter states pt will return to [facility] when discharged to his home. He has family who live with him and provide him care. All family members have already tested +. Daughter also tested +, but is asymptomatic. Discussed pt will need o2 for trip home. I have called [employer]. They will provide portable 02 for trip and their [place] office with provide the concentrator when orders are received. Daughter will bring pts clothing. Caregiver from [place] will pick pt up tomorrow. Daughter will request they bring his walker for safety and his urinal for the ride home. Daughter also states concern for pt's mental health as he lost his in August, son in , and their nephew in April. Discussed if we can safely discharge tomorrow, pt should be on his way home tomorrow.
--- NOTE | 2020-06-07 13:40 | NUR ---
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 Up to bathroom with walker, RN at pt's side but pt does not require RN assist to ambulate. Pt unable to have BM, returns to bed with use of walker and RN at his side. Pt short of breath on return to bed, SpO2 89%, increases to 92-93% while back in bed.
--- NOTE | 2020-06-07 14:44 | NUR ---
PATIENT NOTED TO BE TAKING HIS GOWN OFF AND REMOVING HIS OXYGEN AT TIMES. THIS RN INTO ROOM TO DISCUSS WITH PATIENT HOW HE'S FEELING. PT STATES HE DOESN'T WANT TO WEAR HIS GOWN AT THIS TIME AND IS MORE COMFORTABLE WITH IT OFF. PT ALSO HAS HIS OXYGEN OFF AT TIMES. ABOUT 10-15 MINUTES LATER, PATIENT NOTED TO BE GETTING OUT OF BED ON HIS OWN, STANDING WITH HIS WALKER, AND HAS NOW PLACED HIS GOWN BACK ON. PATIENT STATES, "I NEED MY , WHERE IS SHE?" REMINDED PATIENT THAT HIS THIS AUGUST. PATIENT THEN WANTING TO CALL HIS DAUGHTER AND NOW TALKING WITH HER ON THE PHONE. RT GOING TO GO INTO ROOM AND GOING TO QUALIFY PATIENT FOR HOME OXYGEN USE. CONTINUE TO MONITOR.
--- NOTE | 2020-06-07 15:33 | NUR ---
RT IN ROOM AND FINISHING QUALIFYING PATIENT FOR HOME O2. PAPERWORK TO BE SENT FOR A POTENTIAL D/C HOME TOMORROW.
--- NOTE | 2020-06-07 15:36 | NUR ---
02 qualifier completed by Rt. Qualifier, RX, progress note, face sheet, and not faxed to [facility] for portable 02 delivery to be delivered tomorrow am for pt to transport to home in [place], [place].
--- NOTE | 2020-06-07 17:14 | NUR ---
PATIENT UP TO CHAIR FOR DINNER. CBG 203 AND WILL BE COVERED WITH SS INSULIN. PATIENT SOMEWHAT RESTLESS SAYING, "WHAT AM I GOING TO DO NOW?" PATIENT WAITING IN CHAIR FOR HIS DINNER NOW. PATIENT SEEMS BORED. CALL LIGHT WITHIN REACH.
--- NOTE | 2020-06-07 18:43 | NUR ---
PATIENT USES CALL LIGHT AND UP TO BATHROOM TO TRY AND HAVE A BM. PT HASN'T BEEN ABLE TO HAVE ONE IN A FEW DAYS, THEREFORE STOOL SOFTENERS WERE ORDERED FOR PATIENT TO START TONIGHT. LONG DISCUSSION EARLIER WITH PATIENT REGARDING WHOLE HOSPITAL STAY AND HOW HE IS FEELING OVERALL. DISCUSSED POTENTIAL D/C HOME TOMORROW. ALSO DISCUSSED WITH PATIENT HIS END OF LIFE AND WHAT HE WOULD WANT TO HAVE DONE IN THE EVENT HE WERE TO PASS AWAY. PT INSIGHTFUL AND STATES, "IF IT'S MY TIME TO GO, THEN I'LL GO. JUST LET ME GO." PATIENT TALKING SOME ABOUT HIS LIFE AND HOW HE FEELS HE'S LIVED HIS LIFE EXACTLY HOW HE WANTED TO. PT ALSO TALKING ABOUT HIS WHO THIS LAST AUGUST. DISCUSSED WITH PATIENT THAT WE WILL TRY TO HELP HIM SLEEP TONIGHT MUCH POSSIBLE. PT UNABLE OT HAVE A BM. BACK TO BED. REMAINS ON 3 L NC. CALL LIGHT WITHIN REACH.
--- NOTE | 2020-06-07 19:25 | NUR ---
ROUNDED ON pt. RESTING IN BED WITH EYES CLOSED. CALL LIGHT WITHIN REACH.
--- NOTE | 2020-06-07 21:00 | NUR ---
PER HARIKA BETANCOURT. pt UP TO VOID. BACK TO BED. CALL LIGHT WITHIN REACH.
--- NOTE | 2020-06-07 22:00 | NUR ---
IN TO DO ASSESSMENT. pt WOKE TO VOICE. DENIES SOB AND PAIN AT THIS TIME. HEART BEAT VISUALIZED JUST BELOW PACEMAKER. NOTED RESPIRATIONS ARE IRREGULAR AT TIMES WITH ABD MUSCLE USE. O2 SATS >90% ON 3L VIA HUMIDIFIED NC. ASSESSMENT DONE. VITALS DONE. MEDICATIONS GIVEN (SEE MAR). pt APPROPRIATE AND ORIENTED. MOVED FROM CCU TO MED/SURG ROOM 114. POSSESSIONS AND CALL LIGHT WITHIN REACH. CURTAIN OPEN TO NURSES STATION FOR DIRECT VISUALIZATION.
--- NOTE | 2020-06-07 23:40 | NUR ---
ROUNDED ON pt. RESTING IN BED WITH EYES CLOSED, CURTAIN OPEN TO NURSES STATION. O2 SAT 94% ON 3L. CALL LIGHT WITHIN REACH. RESPIRATIONS REMAIN IRREGULAR AT TIMES WITH ACCESSORY MUSCLE USE.
--- NOTE | 2020-06-08 02:00 | NUR ---
NOTED URINE IN URINAL AT BEDSIDE. pt PULLING COVERS UP. PROVIDED A WARM BLANKET. EMPTIED URINAL. AUSCULATED LUNGS. CRACKLES IN BASES UNCHANGED. pt CONTINUES TO USE ACCESSORY MUSCLES. RESTING ON RIGHT SIDE. CALL LIGHT WITHIN REACH. CURTAIN OPEN TO NURSES STATION.
--- NOTE | 2020-06-08 03:29 | NUR ---
OBSERVED pt GETTING OUT OF BED, NAKED. pt ASKED FOR PIE "I HAVE SOME IN THE FREEZER" RE ORIENTED TO TIME OF DAY. pt SETTLED FOR JELLO AND ENSURE, PROVIDED. URINE EMPTIED. pt SITTING IN BED EATING JELLO. CURTAIN OPEN TO NURSES STATION. CALL LIGHT WITHIN REACH.
--- NOTE | 2020-06-08 04:15 | NUR ---
CALL LIGHT ON. pt REQUESTED PHONE TO CALL HIS FAMILY. REORIENTED TO TIME OF DAY. pt AGREES TO WAIT UNTIL LATER. JOKING WITH THIS RN. pt DENIES FURTHER NEEDS AT THIS TIME. CALL LIGHT WITHIN REACH.
--- NOTE | 2020-06-08 06:25 | NUR ---
pt RECENTLY VOIDED. EMPTIED URINAL. pt WOKE TO VOICE. VITALS AND I&O RECORDED. pt CONTINUES TO BREATH USING ACCESSORY MUSCLES. NO CHANGE THROUGHOUT THE NIGHT. STATES "I'M BREATHING FINE" DENIES SOB, LIGHTHEADEDNESS OR DIZZYNESS. CALL LIGHT WITHIN REACH. CURTAIN OPEN TO NURSES STATION.
--- NOTE | 2020-06-08 07:05 | NUR ---
SHIFT REPORT FROM EL RN INCLUDED: Pt on 3L NC and maintaining oxygen sats >90%. Pt in decline after having Covid. Pt and family refuse SNF care, so they will be taking him home to [facility]. Pt in bed now, breathing even and unlabored, saturations at 97% on 3L NC, table and call light within reach. Pt visible from 2nd nurses station.
--- NOTE | 2020-06-08 08:00 | NUR ---
ASSESSMENT + MED PASS + INSULIN ADMIN Pt CBG was 195, 3 units insluin given per sliding scale orders. Pt able to take all meds without difficulty. Pt VSS, o2sat 95% on 3L NC, lungs clear but tight. Pt denie pain and nausea at this time. Pt breakfast in room. Pt denies further needs at this time. Pt in bed, table and call light within reach. Curtain open and visible from nurses station.
--- NOTE | 2020-06-08 09:01 | NUR ---
Per [address] Coronel, pt is cleared to discharge today. Called [employer] and they will deliver [address] tanks [address] Coronel notified and will have discharge paperwork completed for pt to dc between 10:30 and 11:00. Called and spoke pt's daughter Radha. She will bring pt's clothing, walker, and a urinal for ride home to [place], [place]. [employer] will deliver 02 concentrator to pt's home in [place] from their [place] office. Charge nurse notified of time pt will dc.
--- NOTE | 2020-06-08 09:15 | NUR ---
ROUNDING. Pt in bed, lying down, breathing even and unlabored, table and call light within reach.
--- NOTE | 2020-06-08 10:39 | NUR ---
FAXED H&P AND DISCHARGE SUMMARY TO PATIENTS PRIMARY CARE DOCTOR [facility]. PHONE [phone] FAX [phone]. THEY WILL BE IN CONTACT WITH PATIENT THIS WEEK FOR AN APPOINTMENT.
--- NOTE | 2020-06-08 10:40 | NUR ---
PREP FOR DC Pt vitals taken, dressed, and IV pulled. IV pulled with catheter intact, no excess bleeding noted, gauze and tape applied. Pt dressed into own clothes and pt personal items gathered and bagged up. Pt verbalized understanding of DC instructions, and follow up care plans. Pt in bed, table and call light withn reach. Pt visible from 2nd nurses station.
--- NOTE | 2020-06-08 11:05 | NUR ---
DISCHARGE Pt and belongings taken out to [place] with two oxygen tanks and Claudy RT. Claudy RT present to educate pts daughter on how to use the tanks and change the meter between them. All familys questions answered. Pt in vehicle safely, without incident. Pt on 3L NC per tank. Tanks safely placed within vehicle. Pt DC packet and instructions given to family. Pt and family verbalized understanding of DC instructions and care from here. All questions answered.
== END 2020-06-08 11:00 | disposition home or self-care (01) | DRG 177 ==
LOC: ED 10:59 → CCU 18:08 → MS 06-01 19:51 → CCU 06-02 17:23 → MS 06-07 22:30
PROVIDERS: ADMIT Internal Medicine; ATTEND Internal Medicine
PROC: XW033E5 Introduction of Remdesivir Anti-infective into Peripheral Vein, Percutaneous Approach, New Technology Group 5 (ICD-10-PCS; principal; 2020-05-27)
PROC: 5A09357 Assistance with Respiratory Ventilation, Less than 24 Consecutive Hours, Continuous Positive Airway Pressure (ICD-10-PCS; 2020-06-04)
DX: U07.1 COVID-19 (principal); J12.82 Pneumonia due to coronavirus disease 2019; J96.01 Acute respiratory failure with hypoxia; I50.23 Acute on chronic systolic (congestive) heart failure; I48.20 Chronic atrial fibrillation, unspecified; I25.10 Atherosclerotic heart disease of native coronary artery without angina pectoris; I11.0 Hypertensive heart disease with heart failure; E11.65 Type 2 diabetes mellitus with hyperglycemia; E78.5 Hyperlipidemia, unspecified; T17.990A Other foreign object in respiratory tract, part unspecified in causing asphyxiation, initial encounter; Z66 Do not resuscitate; Z88.8 Allergy status to other drugs, medicaments and biological substances; Z79.01 Long term (current) use of anticoagulants; Z95.1 Presence of aortocoronary bypass graft; Z95.0 Presence of cardiac pacemaker; Z79.84 Long term (current) use of oral hypoglycemic drugs; Z79.02 Long term (current) use of antithrombotics/antiplatelets; Z79.899 Other long term (current) drug therapy
CPT/HCPCS: 71045; 71260; 80048; 80053; 82803; 83036; 83735; 83880; 84484; 85007; 85025; 85032; 93005; 93010; 93306; 94640; 94660; 94668; 94760; 94761; 96374; 97110; 97116; 97163; 99285-25; C9803; J1815; J1940; J3480; J7040; J7050; J7060; J8540; Q9967; U0003